=== PATIENT | female | born 1980 | race African-American/Black ===

== ENCOUNTER 2025-02-14 16:24 | Emergency (ER) | payer BC ==
[2025-02-14] MEDS: Ketorolac 60 MG/2 ML SDV IM ONE (18:09)
== END 2025-02-14 19:15 | disposition home or self-care (01) ==
LOC: JD.ED 16:24
DX: M77.32 Calcaneal spur, left foot (principal); M54.42 Lumbago with sciatica, left side
CPT/HCPCS: 73610; 96372; 99283; J1885